=== PATIENT | male | born 1970 | race African-American/Black ===

== ENCOUNTER 2016-10-26 10:53 | Emergency (ER) | payer OTHER ==
[~2016-10-26] VITALS: Ht 185.4 cm; Wt 94.0 kg
[2016-10-26 12:41] LABS: HEMATOCRIT 40.4 % (38.0-50.0); MCH 26.9 PG (29.0-34.0); MCHC 33.4 G/DL (30.0-36.0); MCV 80.6 FL (86-99); MEAN PLAT.VOLUME 10.4 uM^3 (9.0-12.4); PLATELET COUNT 250 K/uL (156-360); RBC DIS.WIDTH-CV 14.3 % (11.8-14.6); RBC DIS.WIDTH-SD 41.7 % (39-53); RED BLOOD COUNT 5.01 M/uL (4.00-5.50); WHITE BLOOD COUNT 5.2 K/uL (4.1-10.2)
[2016-10-26 12:52] LABS: CHLORIDE 111 mEq/L (99-109); D-DIMER ELISA 0.21 mg/L FEU (< 0.57); POTASSIUM 4.3 mEq/L (3.7-5.4); SODIUM 142 mEq/L (136-147)
[2016-10-26 12:53] LABS: GLUCOSE 111 mg/dL (70-99)
[2016-10-26 12:55] LABS: ANION GAP 6 MEQ/L (2-14)
[2016-10-26 12:57] LABS: GFR ESTIMATE (CALCULATED) > 59 mL/min/
[2016-10-26 12:58] LABS: UREA NITROGEN (BUN) 14 mg/dL (9-23)
[2016-10-26 13:02] LABS: TROP-I INTERPRETATION NEGATIVE; TROPONIN-I < 0.01 ng/mL (0.0-0.30)
[2016-10-26] MEDS ORDERED: PEN-VEE K,VEET500 MG PO (14:11)
[2016-10-26] MEDS ORDERED: OXYCODONE HCL5 MG PO (14:11)
[2016-10-26 14:15] VITALS: BP 120/87
== END 2016-10-26 14:16 | disposition home or self-care (01) ==
LOC: EME 10:53
PROVIDERS: Emergency Medicine
DX: R07.9 Chest pain, unspecified (principal); K08.89 Other specified disorders of teeth and supporting structures; R06.02 Shortness of breath; F17.200 Nicotine dependence, unspecified, uncomplicated; Z71.6 Tobacco abuse counseling
CPT/HCPCS: 71020; 80048; 84484; 85027; 85379; 93005; 99281; 99285; J2270; J2405